=== PATIENT | male | born 1995 | race Caucasian/White ===

== ENCOUNTER 2019-10-25 13:01 | Emergency (ER) | payer SELFPAY ==
[2019-10-25 13:07] VITALS: BP 162/85
[2019-10-25] MEDS ORDERED: PENICILLIN G BENZATHINE 1.2 MILLION UNIT/2 ML DISP.SYRIN IM ONE (13:15)
--- NOTE | 2019-10-25 13:17 | ER Document Report ---
HPI - HPI Time Seen by Provider: 10/25/19 13:07 Pain Level: Denies Notes: 23-year-old male patient presenting to the emergency department from the urgent care clinic requesting a penicillin shot. Patient apparently tested positive for syphilis, he has risk his results with him. He is in need of treatment. He currently denies any symptoms. Past Medical History - General Information source: Patient - Social History Smoking Status: Current Every Day Smoker Chew tobacco use (# tins/day): Yes Frequency of alcohol use: Occasional Drug Abuse: Marijuana Family History: Reviewed & Not Pertinent Patient has suicidal ideation: No Patient has homicidal ideation: No Surgical Hx: Negative - Immunizations Immunizations up to date: Yes Vertical Provider Document - CONSTITUTIONAL Notes: PHYSICAL EXAMINATION: GENERAL: Well-appearing, well-nourished and in no acute distress. HEAD: Atraumatic, normocephalic. EYES: Pupils equal round extraocular movements intact, conjunctiva are normal. ENT: Nares patent NECK: Normal range of motion LUNGS: No respiratory distress Musculoskeletal: Normal range of motion NEUROLOGICAL: Normal speech, normal gait. PSYCH: Normal mood, normal affect. SKIN: Warm, Dry, normal turgor, no rashes or lesions noted. Course - Re-evaluation Re-evalutation: Patient given penicillin injection, see MAR. Patient will follow-up with the health department for further testing. - Vital Signs Vital signs: Temp Pulse Resp BP Pulse Ox 97.5 F 63 18 162/85 H 100 10/25/19 13:05 10/25/19 13:05 10/25/19 13:05 10/25/19 13:05 10/25/19 13:05 Discharge - Discharge Clinical Impression: Syphilis Condition: Stable Disposition: HOME, SELF-CARE Additional Instructions: Please [place] [facility] [place] 6 [place] for a repeat blood test. Referrals: [facility] [Outside] - Follow up as needed
== END 2019-10-25 13:35 | disposition home or self-care (01) ==
LOC: ER 13:01
DX: A53.9 Syphilis, unspecified (principal); F17.210 Nicotine dependence, cigarettes, uncomplicated
CPT/HCPCS: 99281; 96372; J0561

== ENCOUNTER 2019-11-12 04:40 | Emergency (ER) | payer SELFPAY ==
[2019-11-12] MEDS ORDERED: OXYCODONE-ACETAMINOPHEN 5-325 MG TABLET PO ONE (05:22)
[2019-11-12] MEDS ORDERED: ONDANSETRON 4 MG TAB.RAPDIS PO ONE (05:22)
[2019-11-12] MEDS ORDERED: AMOXICILLIN TRIHYDRATE 500 MG CAPSULE PO ONE (05:22)
[2019-11-12] MEDS ORDERED: DIPH/PERTUSS(ACELL)/TETANUS VAC/PF 0.5 ML SYR (>=10YO) IM ONE (05:22)
[2019-11-12] MEDS ORDERED: AMOXICILLIN TR/POT CLAVULANATE 500-125 MG TAB PO ONE (05:22)
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
--- NOTE | 2019-11-12 06:06 | RADIOLOGY REPORT (SQ) ---
EXAM DESCRIPTION: XR HAND 3 OR MORE VIEWS COMPLETED DATE/TME: 11/12/2019 05:03 CLINICAL HISTORY: 23 years, Male, PAIN COMPARISON: None. NUMBER OF VIEWS: 3 TECHNIQUE: 3 views right hand LIMITATIONS: None. FINDINGS: Soft tissue swelling along the ulnar aspect of the hand and wrist. Old healed fifth metacarpal fracture distally. Negative for acute fracture or dislocation. IMPRESSION: Old healed fifth metacarpal fracture. Soft tissue swelling. copyright 2010 [employer]- All Rights Reserved
--- NOTE | 2019-11-12 06:11 | RADIOLOGY REPORT (SQ) ---
EXAM DESCRIPTION: XR WRIST 3 OR MORE VIEWS COMPLETED DATE/TME: 11/12/2019 05:02 CLINICAL HISTORY: 23 years, Male, PAIN COMPARISON: None. NUMBER OF VIEWS: 3 TECHNIQUE: 3 view right wrist LIMITATIONS: None. FINDINGS: Negative for acute fracture or dislocation. Mild diffuse soft tissue swelling. Old healed fifth metacarpal fracture. IMPRESSION: No acute osseous abnormality copyright 2010 [email or web address]- All Rights Reserved
[2019-11-12 06:24] VITALS: BP 117/69
== END 2019-11-12 06:27 | disposition home or self-care (01) ==
LOC: ER 04:40
DX: S60.511A Abrasion of right hand, initial encounter (principal); S60.419A Abrasion of unspecified finger, initial encounter; Y04.0XXA Assault by unarmed brawl or fight, initial encounter; Z23 Encounter for immunization; F17.200 Nicotine dependence, unspecified, uncomplicated
CPT/HCPCS: 99283; 90471; 73130; 73110; 90715; S0119

== ENCOUNTER 2020-05-31 13:49 | Emergency (ER) | payer BC, MEDICAID ==
[2020-05-31 13:55] VITALS: BP 138/88
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
== END 2020-05-31 14:33 | disposition home or self-care (01) ==
LOC: ER 13:49
DX: R22.0 Localized swelling, mass and lump, head (principal); F17.200 Nicotine dependence, unspecified, uncomplicated
CPT/HCPCS: 99283

== ENCOUNTER 2020-06-04 09:56 | Emergency (ER) | payer SELFPAY ==
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
[2020-06-04 11:52] LABS: ABSOLUTE BASOPHILS # (AUTO) 0.1 10^3/uL (0.0-0.2); ABSOLUTE EOSINOPHILS # (AUTO) 0.2 10^3/uL (0.0-0.6); ABSOLUTE LYMPHOCYTES (AUTO) 1.1 10^3/uL (0.5-4.7); ABSOLUTE MONOCYTES (AUTO) 0.6 10^3/uL (0.1-1.4); ABSOLUTE NEUT (AUTO) 6.9 10^3/uL (1.7-8.2); BASOPHILS % (AUTO) 0.9 % (0-2); EOSINOPHILS % (AUTO) 1.9 % (0-6); HEMATOCRIT 43.3 % (37.9-51.0); HEMOGLOBIN 15.3 g/dL (13.5-17.0); LYMPHOCYTES % (AUTO) 12.9 % (13-45); MEAN CORPUSCULAR HEMOGLOBIN 32.5 pg (27.0-33.4); MEAN CORPUSCULAR HGB CONC 35.3 g/dL (32.0-36.0); MEAN CORPUSCULAR VOLUME 92 fl (80-97); MONOCYTES % (AUTO) 6.6 % (3-13); PLATELET COUNT 246 10^3/uL (150-450); RED BLOOD COUNT 4.69 10^6/uL (4.35-5.55); RED CELL DISTRIBUTION WIDTH 12.7 % (11.5-14.0); SEGMENTED NEUTROPHILS % (AUTO) 77.7 % (42-78); TOTAL CELLS COUNTED % (AUTO) 100 %; WHITE BLOOD COUNT 8.9 10^3/uL (4.0-10.5)
[2020-06-04 12:10] LABS: ALBUMIN 4.5 g/dL (3.5-5.0); ALKALINE PHOSPHATASE 76 U/L (38-126); ANION GAP 7 (5-19); ASPARTATE AMINO TRANSFERASE 15 U/L (17-59); BILIRUBIN,DIRECT 0.1 mg/dL (0.0-0.4); BILIRUBIN,TOTAL 0.4 mg/dL (0.2-1.3); BLOOD UREA NITROGEN 6 mg/dL (7-20); C-REACTIVE PROTEIN 27.3 mg/L (<10.0); CALCIUM 9.8 mg/dL (8.4-10.2); CARBON DIOXIDE 28 mmol/L (22-30); CHLORIDE 105 mmol/L (98-107); GLUCOSE 84 mg/dL (75-110); POTASSIUM 4.5 mmol/L (3.6-5.0); TOTAL PROTEIN 7.5 g/dL (6.3-8.2)
[2020-06-04] MEDS ORDERED: KETOROLAC TROMETHAMINE INJ/PF 30 MG/1 ML SDV IV ONE (12:13)
[2020-06-04] MEDS ORDERED: PIPERACILLIN/TAZOBACTAM 3.375 GM VIAL IV ONE (12:14)
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
[2020-06-04 14:53] VITALS: BP 134/76
== END 2020-06-04 14:45 | disposition home or self-care (01) ==
LOC: ER 09:56
DX: K02.9 Dental caries, unspecified (principal); L02.01 Cutaneous abscess of face; F17.200 Nicotine dependence, unspecified, uncomplicated
CPT/HCPCS: 99285; 96375; 96365; 36415; 87040; 85025; 86140; 80053; 70487; J1885; J2543